=== PATIENT | male | born 1995 | race Caucasian/White ===

== ENCOUNTER 2019-03-25 21:25 | Emergency (ER) | payer MEDICAID ==
--- NOTE | 2019-03-25 21:43 | Emergency Department Record ---
History of Present Illness - General Chief Complaint: Dizziness Stated Complaint: DIZZY AND SOB Time Seen by Provider: 03/25/19 21:28 Source: Patient Mode of Arrival: Ambulatory Limitations: No limitations - History of Present Illness Initial Comments: 23 yo male presents with dizziness for about 3 months. It is daily and nearly constant. He constantly feels off balance. No headaches. No vision changes. No speech changes. No ear pressure or pain. No loss of coordination of arms or legs. He has not seen his PCP or notified her of the symptoms. He has been short of breath for 2 months. He has asthma. No cough. Occasional sharp chest pain. No hemoptysis. No leg swelling. No fevers. MD Complaint: Dizziness Timing: Gradual onset, Constant Description: Other History of Same: Yes Severity: Moderate Improves With: Nothing Worsens With: Nothing Associated Symptoms: Other - Esme Coma Scale Eye Response: (4) Open spontaneously Motor Response: (6) Obeys commands Verbal Response: (5) Oriented [place] Total: 15 - Related Data Home Medications Medication Instructions Recorded Confirmed Last Taken Albuterol Sulfate [Ventolin Hfa] 1 - 2 puff IH .EVERY 4-6 HOURS PRN 03/25/19 03/25/19 03/25/19 Previous Rx's Medication Instructions Recorded Meclizine HCl [Antivert] 25 mg PO Q8H #20 tablet 03/26/19 Allergies Allergy/AdvReac Type Severity Reaction Status Date / Time cephalexin [From Keflex] Allergy DIFFICULTY Verified 03/25/19 21:50 BREATHING Review of Systems Constitutional: Denies: Chills, Fever, Malaise, Weakness Eyes: Denies: Eye discharge, Eye pain, Photophobia, Vision change ENT: Denies: Congestion, Throat pain Respiratory: Reports: Dyspnea, Hemoptysis Cardiovascular: Denies: Chest pain, Dyspnea on exertion, Edema, Syncope Endocrine: Denies: Fatigue, Polydipsia, Polyuria Gastrointestinal: Denies: Diarrhea, Nausea, Vomiting Genitourinary: Denies: Dysuria, Frequency, Hematuria Musculoskeletal: Denies: Arthralgia, Back pain, Joint swelling, Myalgia Skin: Denies: Bruising, Change in color, Rash Neurological: Reports: Vertigo. Denies: Confusion, Headache, Numbness, Weakness Psychiatric: Denies: Anxiety Hematological/Lymphatic: Denies: Easy bleeding, Easy bruising Physical Exam - General General Appearance: Alert, Oriented x3, Cooperative, No acute distress Limitations: No limitations - Head Head exam: Atraumatic, Normocephalic, Normal inspection - Eye Eye exam: Normal appearance, PERRL, EOMI. negative: Conjunctival injection, Scleral icterus - ENT ENT exam: Normal exam, Mucous membranes moist Ear exam: Normal external inspection Nasal Exam: Normal inspection Mouth exam: Normal external inspection - Neck Neck exam: Normal inspection, Full ROM. negative: Lymphadenopathy, Thyromegaly - Respiratory Respiratory exam: Normal lung sounds bilaterally, Other (Normal work of breathing, no conversational dyspnea). negative: Accessory muscle use, Decreased breath sounds, Prolonged expiratory, Respiratory distress, Rhonchi, Stridor, Wheezes - Cardiovascular Cardiovascular Exam: Regular rate, Normal rhythm, Normal heart sounds Peripheral Pulses: 2+: Radial (R), Radial (L) - GI/Abdominal GI/Abdominal exam: Soft. negative: Tenderness - Rectal Rectal exam: Deferred - exam: Deferred - Extremities Extremities exam: Normal inspection. negative: Pedal edema, Tenderness - Back Back exam: Denies: CVA tenderness (R), CVA tenderness (L) - Neurological Neurological exam: Alert, Oriented X3 - Psychiatric Psychiatric exam: Normal affect, Normal mood. negative: Agitated, Anxious - Skin Skin exam: Dry, Intact, Normal color, Warm Course Vital Signs 03/25/19 21:38 Temperature 98.4 F Pulse Rate [ 105 H Right] Respiratory 20 Rate Blood Pressure 152/88 [Left Arm] Pulse Ox 98 - Reevaluation(s) Reevaluation #1: 03/25/19 22:05 EKG #1: 21:53 Rate: 77 Rhythm: sinus Lebeau: normal Intervals: normal ST segments: normal Normal EKG Prior: None 03/26/19 00:18 The labs were reviewed No significant abnormalities The HCT was negative for acute changes The CXR was reviewed by me and is negative for acute changes 03/26/19 00:26 The patient is feeling greatly improved We discussed the results of the tests and questions were answered at the time of discharge. The patient is doing well and is comfortable with DC. DC vitals were reviewed. We discussed at length reasons to immediately return to the ED as well as close follow up. The patient will call the PCP for close follow up of this ED visit to review this visit and the tests performed Medical Decision Making - Lab Data Result diagrams: 03/25/19 22:05 03/25/19 22:05 Disposition Disposition: Discharge Clinical Impression: Dizziness, Dyspnea Disposition: Home, Self-Care Condition: (1) Good Instructions: Dizziness (ED) Additional Instructions: Call your doctor for the next available follow up appointment Review this ER visit and the tests performed with your family doctor Return to the ER for a recheck if worse, any new concerns or questions Take the prescriptions provided as directed for the dizziness Prescriptions: Meclizine HCl [Antivert] 25 mg PO Q8H #20 tablet Forms: Patient Portal Access Time of Disposition: 00:20 Quality - Quality Measures Quality Measures: N/A - Blood Pressure Screening Does Patient Have Any of the Following: No Blood Pressure Classification: Pre-Hypertensive BP Reading Systolic Measurement: 129 Diastolic Measurement: 77 Screening for High Blood Pressure: < Pre-Hypertensive BP, F/U Documented > [G8950] Pre-Hypertensive Follow-up Interventions: Referral to alternative/primary care provider.
[2019-03-25] MEDS ORDERED: MECLIZINE 25 MG TABLET PO ONE (22:12)
[2019-03-25 22:31] LABS: ABSOLUTE NEUTROPHIL COUNT 3.99; BASO % 0.3 % (0-6); EOS % 1.2 % (0-6); GRAN % 53.2 % (47-80); HEMATOCRIT 44.8 % (42.0-52.0); HEMOGLOBIN 15.5 gm/dl (14.0-18.0); LYMPH % 37.7 % (16-45); MEAN CELL VOLUME 90.7 fl (81-97); MEAN CORPUSCULAR HEMOGLOBIN 31.4 pg (27-33); MEAN CORPUSCULAR HGB CONC 34.6 g/dl (32-36); MEAN PLATELET VOLUME 11.4 fl (7.4-10.4); MONO % 7.6 % (0-9); PLATELET COUNT 166 K/uL (130-400); RED BLOOD COUNT 4.94 M/uL (4.40-5.70); RED CELL DISTRIBUTION WIDTH 11.9 % (11.5-14.5); WHITE BLOOD COUNT W/O DIFF 7.5 K/uL (4.2-12.2)
[2019-03-25 22:51] LABS: ALB/GLOB RATIO 2.1 (1.1-1.8); ALBUMIN 4.8 g/dL (4.0-5.0); ALKALINE PHOSPHATASE 60 U/L (40-129); ALT/SGPT 24 U/L (<41); AST/SGOT 25 U/L (10.0-50.0); BLOOD UREA NITROGEN 11 mg/dL (6-20); CREATININE 0.8 mg/dL (0.7-1.2); EST GLOMERULAR FILTRATION RATE > 60 mL/min; GLUCOSE,RANDOM 99 mg/dL (74-109); TOTAL PROTEIN 7.1 g/dL (6.6-8.7)
--- NOTE | 2019-03-27 12:10 | CT SCAN REPORT ---
EXAM: CT SCAN HEAD WO CONTRAST HISTORY: 23-YEAR-OLD MALE WITH DIZZINESS AND VERTIGO. TECHNIQUE: Routine CT images of the head were obtained without contrast. FINDINGS: Ventricles, basal cisterns, and sulci are of normal size, shape, and configuration. No midline shift or mass effect. Koenig-white differentiation is well-maintained throughout both cerebral hemispheres without evidence for acute ischemia. No intracranial mass or hemorrhage. Orbital contents are unremarkable. Paranasal sinuses and mastoid air cells are essentially clear. IMPRESSION: NO ACUTE INTRACRANIAL ABNORMALITY. JOB NUMBER: [id number] [facility]
--- NOTE | 2019-03-27 12:12 | RADIOLOGY REPORT ---
EXAM: CHEST 2 VIEWS HISTORY: DYSPNEA. TECHNIQUE: Chest, two views. COMPARISON: None. FINDINGS: The cardiomediastinal silhouette is unremarkable. Lungs and pleural spaces are clear. IMPRESSION: NO ACUTE CARDIOPULMONARY ABNORMALITY. JOB NUMBER: [id number] [facility]
== END 2019-03-26 00:33 | disposition home or self-care (01) ==
LOC: ER 21:25
DX: R42 Dizziness and giddiness (principal); R06.00 Dyspnea, unspecified; R06.02 Shortness of breath; Z87.891 Personal history of nicotine dependence
CPT/HCPCS: 70450; 71046; 80053; 84443; 84484; 85025; 93005; 93010; 99284; 99285